=== PATIENT | male | born 1960 | race Two or more races ===

== ENCOUNTER 2024-04-08 13:54 | Outpatient (CLI) | payer OTHER | END 2024-04-08 13:55 | disposition home or self-care (01) | LOC: SCSRAD 13:54 | PROVIDERS: ATTEND Orthopaedic Surgery | DX: M54.50 Low back pain, unspecified (principal); M47.816 Spondylosis without myelopathy or radiculopathy, lumbar region; M43.17 Spondylolisthesis, lumbosacral region | CPT/HCPCS: 72100 ==